=== PATIENT | female | born 1960 | race Caucasian/White ===

== ENCOUNTER 2021-08-21 08:19 | Emergency (ER) | payer BC, OTHER ==
[2021-08-21] MEDS ORDERED: Metoclopramide 10 MG/2 ML SDV IVPUSH ONE (09:04)
[2021-08-21] MEDS ORDERED: Ketorolac 15 MG/ML SDV IVPUSH ONE (09:04)
[2021-08-21] MEDS ORDERED: Lactated Ringers 1,000 ML IV ONE (09:04)
[2021-08-21] MEDS ORDERED: diphenhydrAMINE 50 MG/ML SDV IVPUSH ONE (09:05)
--- NOTE | 2021-08-21 09:22 | EDM.PDOC ---
ED HPI GENERAL MEDICAL PROBLEM - General Chief Complaint: Headache Stated Complaint: HEADACHE VOMITING Time Seen by Provider: 08/21/21 09:19 Source of Information: Reports: Patient History Limitations: Reports: No Limitations - History of Present Illness INITIAL COMMENTS - FREE TEXT/NARRATIVE: Patient is a 61-year-old female with a history of multiple sclerosis presenting with a chief complaint of headache. The patient states she has had a headache since yesterday. Headache was gradual in onset. She states the headache starts bifrontal and is worse on the left side of her head. She states she started experiencing significant nausea, vomiting and neck pain. She reports inability to keep anything down food or liquid. She states headache is similar to headaches that she is suffered from her entire life. She states rarely she will have to come into the emergency room for evaluation and treatment. She states morphine and fentanyl have helped her in the past. Currently, she denies any fevers, chills, body aches, head trauma, visual changes, pain with swallowing. She does report some associated photophobia which is normal for her. Head Pain Score (Numeric/FACES): 10 - Related Data Allergies Allergy/AdvReac Type Severity Reaction Status Date / Time clindamycin Allergy Diarrhea Verified 08/21/21 08:27 Home Meds: Home Meds 5-Hydroxytryptophan (5-Htp) [5-Htp] 1 cap PO DAILY 08/21/21 [History] Cholecalciferol (Vitamin D3) [Vitamin D3] 1 tab PO DAILY 08/21/21 [History] Evening [place] Oil 2,600 mg PO DAILY 08/21/21 [History] Prasterone (DHEA)/Calcium Carb [DHEA] 1 tab PO DAILY 08/21/21 [History] Pyridoxine HCl (Vitamin B6) [Vitamin B-6] 1 tab PO DAILY 08/21/21 [History] SUMAtriptan [Imitrex] 50 mg PO BID PRN #10 tablet 08/21/21 [Rx] Thiamine HCl [Vitamin B-1] 1 tab PO DAILY 08/21/21 [History] Thyroid,Pork [[place] Thyroid] 100 mg PO DAILY 08/21/21 [History] Ubidecarenone [Co Q-10] 100 mg PO DAILY 08/21/21 [History] Past Medical History HEENT History: Reports: Cataract Cardiovascular History: Reports: Blood Clots/VTE/DVT 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: Neurological History: Reports: Migraines, MS Endocrine/Metabolic History: Reports: Hypothyroidism - Past Surgical History HEENT Surgical History: Reports: Cataract Surgery, Other (See Below) Other HEENT Surgeries/Procedures: Tooth extraction Female Surgical History: Reports: Hysterectomy Social & Family History - Family History Family Medical History: No Pertinent Family History - Tobacco Use Tobacco Use Status *Q: Current Every Day Tobacco User Years of Tobacco use: 30 Packs/Tins Daily: 0.1 - Caffeine Use Caffeine Use: Reports: Coffee - Recreational Drug Use Recreational Drug Use: No ED ROS GENERAL - Review of Systems Review Of Systems: See Below Free Text/Narrative/Comment: In addition to that documented in the HPI above, the additional ROS was obtained: Constitutional: Denies fevers or chills Eyes: Denies vision changes ENMT: Denies sore throat CV: Denies chest pain Resp: Denies SOB GI: Per HPI : Denies painful urination MSK: Denies recent trauma Skin: Denies new rashes Neuro: Denies new numbness or tingling or weakness Endocrine: Denies unexpected weight loss Heme: Denies bleeding disorders - Physical Exam Exam: See Below Text/Narrative:: I have reviewed the triage vital signs Const: Well nourished, well developed, appears stated age Eyes: Pupils Equal and reactive to light bilaterally, no conjunctival injection HENT: No signs of trauma or swelling, Neck supple without meningismus CV: Regular Rate Rhythm, Warm, well-perfused extremities RESP: Unlabored respiratory effort GI: soft, non-tender, non-distended, no masses MSK: No gross deformities appreciated Skin: Warm, dry. No rashes Neuro: Alert and oriented x3, nurse coordinator II-XII intact. Sensation and motor function of all 4 extremities intact. Psych: Appropriate mood and affect. Course - Vital Signs Last Recorded V/S: Last Vital Signs Temp 36.4 C 08/21/21 08:42 Pulse 97 08/21/21 08:42 Resp 16 08/21/21 08:42 BP 141/90 H 08/21/21 08:42 Pulse Ox 97 08/21/21 08:42 - Orders/Labs/Meds Meds: Medications Discontinued Medications Generic Name Dose Route Start Last Admin Trade Name Freq PRN Reason Stop Dose Admin Diphenhydramine HCl 25 mg 08/21/21 09:05 08/21/21 09:25 Diphenhydramine 50 Mg/Ml Sdv IVPUSH 08/21/21 09:06 25 mg ONETIME ONE Administration Lactated Ringer's 1,000 mls @ 1,000 mls/hr 08/21/21 09:04 08/21/21 09:25 Ringers, Lactated IV 08/21/21 10:03 1,000 mls/hr .BOLUS ONE Administration Ketorolac Tromethamine 15 mg 08/21/21 09:04 08/21/21 09:21 Ketorolac 15 Mg/Ml Sdv IVPUSH 08/21/21 09:05 15 mg ONETIME ONE Administration Metoclopramide HCl 10 mg 08/21/21 09:04 08/21/21 09:20 Metoclopramide 10 Mg/2 Ml Sdv IVPUSH 08/21/21 09:05 10 mg ONETIME ONE Administration Departure - Departure Time of Disposition: 10:13 Disposition: Home, Self-Care 01 Clinical Impression: Migraine, Vomiting - Discharge Information Prescriptions: SUMAtriptan [Imitrex] 50 mg PO BID PRN #10 tablet PRN Reason: Headache Instructions: Migraine Headache, [id number] Referrals: PCP,None [Primary Care Provider] - Forms: ED Department Discharge Sepsis Event Note (ED) - Evaluation Sepsis Screening Result: No Definite Risk - Focused Exam Vital Signs: Vital Signs Temp Pulse Resp BP Pulse Ox 08/21/21 08:42 36.4 C 97 16 141/90 H 97 - Assessment/Plan Assessment:: Patient 61-year-old female presenting with headache. Headache typical for her migraines. No evidence of infectious process, temporal arteritis, subarachnoid hemorrhage. Patient feels significantly better after pain medication in the emergency room. She is tolerating p.o. Patient be discharged in the emergency room in stable condition. Patient agrees with this plan of care. All questions were addressed and answered.
== END 2021-08-21 10:57 | disposition home or self-care (01) ==
LOC: JD.ED 08:19
DX: G43.909 Migraine, unspecified, not intractable, without status migrainosus (principal); G35 Multiple sclerosis; E03.9 Hypothyroidism, unspecified; Z88.1 Allergy status to other antibiotic agents; Z79.899 Other long term (current) drug therapy; Z72.0 Tobacco use
CPT/HCPCS: 96374; 96375; 99283; J1200; J1885; J2765; J7120; 99284